=== PATIENT | male | born 1970 | race African-American/Black ===

== ENCOUNTER 2024-09-22 01:12 | Inpatient (IN) | payer SELFPAY ==
[~2024-09-22] VITALS: Ht 175.3 cm; Wt 79.4 kg
[2024-09-22 01:17] VITALS: TEMP 98.2
[2024-09-22] MEDS ORDERED: iohexol 350MG/ML 100ml bottle IV ONE (02:06)
[2024-09-22] MEDS: methylPREDNISolone sod succ 125mg/2ml vial IV ONE (02:10)
[2024-09-22] MEDS: LORazepam 2 mg/ml vial IV ONE (02:10)
[2024-09-22] MEDS: diphenhydrAMINE 50 mg/ml inj IV ONE (02:10)
[2024-09-22 02:19] LABS: BASOPHILS % (AUTO) 0.5 % (0-1); EOSINOPHILS # (AUTO) 0.1 X10'3 (0-0.9); EOSINOPHILS % (AUTO) 1.3 % (0-6); HEMATOCRIT 38.6 % (42.0-52.0); HEMOGLOBIN 13.1 g/dl (14.0-17.9); LYMPHOCYTES % (AUTO) 35.6 % (21-51); MEAN CORPUSCULAR HEMOGLOBIN 30.9 PG (27.0-31.0); MEAN CORPUSCULAR HGB CONC 33.9 g/dL (33.0-36.5); MEAN CORPUSCULAR VOLUME 91.2 FL (78-98); MEAN PLATELET VOLUME 9.6 FL (7.4-10.4); MONOCYTES # (AUTO) 0.5 X10'3 (0-0.9); MONOCYTES % (AUTO) 8.9 % (2-12); NEUTROPHILS % (AUTO) 53.7 % (42-75); PLATELET COUNT 286 X10'3 (140-440); RED BLOOD COUNT 4.24 X10'6 (4.70-6.10); RED CELL DISTRIBUTION WIDTH 14.1 % (11.5-14.5); WHITE BLOOD COUNT 5.6 X10'3 (4.5-11.0)
[2024-09-22 03:03] LABS: ALBUMIN 3.7 G/DL (3.4-5.0); ANION GAP 9 (8-16); BLOOD UREA NITROGEN 22 MG/DL (7-18); BUN/CREATININE RATIO 19.5 (10.0-20.0); CALCIUM 8.7 MG/DL (8.5-10.1); CHLORIDE 105 MMOL/L (99-107); CREATININE 1.13 MG/DL (0.60-1.10); GLUCOSE 112 MG/DL (70-104); POTASSIUM 3.6 MMOL/L (3.5-5.1); SODIUM 142 MMOL/L (135-145); TOTAL CARBON DIOXIDE 28.5 MMOL/L (24-32); eCRCL 75 ML/MIN; eGFR 82 ML/MIN
[2024-09-22] MEDS: enalaprilat 1.25mg/ml 2ml vial IV ONE (03:11)
[2024-09-22] MEDS ORDERED: magnesium Cl slow-release 64mg tablet PO PRN (05:50)
[2024-09-22] MEDS ORDERED: mag hydrox/Alum hydrox/simeth 30ml oral suspension PO PRN (05:50)
[2024-09-22] MEDS ORDERED: potassium Cl 20 mEq SR tablet PO PRN ×2 (05:50)
[2024-09-22] MEDS ORDERED: ondansetron/PF 4mg/2ml inj IV PRN (05:50)
[2024-09-22] MEDS ORDERED: magnesium sulf-water 2g/50mL 50 ML IV PRN (05:50)
[2024-09-22] MEDS ORDERED: magnesium hydroxide 30ml (MOM) UD suspension PO PRN (05:50)
[2024-09-22] MEDS ORDERED: potassium Cl 40MEQ/1/2NS 520ml 520 ML IV PRN (05:50)
[2024-09-22] MEDS ORDERED: acetaminophen 325mg tablet PO PRN (05:50)
[2024-09-22] MEDS ORDERED: magnesium sulf-water 4G/100mL 100 ML IV PRN (05:50)
[2024-09-22 06:33] VITALS: BP 147/70; PULSE 60; RESP 19; O2SAT 98
[2024-09-22] MEDS: K and/or MAG REPLACEMENT MC SCH (08:00)
[2024-09-22] MEDS: aspirin 81mg, enteric-coated 1 TAB TABLET.DR PO SCH (08:00)
[2024-09-22 08:59] LABS: MAGNESIUM 1.8 MG/DL (1.5-2.4); POTASSIUM 4.3 MMOL/L (3.5-5.1); PRO BRAIN NATRIURETIC PEPTIDE 47 PG/ML (0-125); SODIUM 136 MMOL/L (135-145); THYROID STIMULATING HORMONE 0.94 ulU/ml (0.34-4.50)
[2024-09-22 09:01] LABS: ETHANOL < 10 MG/DL (<10)
[2024-09-22] MEDS: atorvastatin 20mg tablet PO SCH (09:05)
[2024-09-22] MEDS: aspirin 81mg tab.chew PO ONE (09:05)
[2024-09-22] MEDS: docusate sod 100mg capsule PO SCH (09:05)
[2024-09-22] MEDS: apixaban 5mg tablet PO SCH (09:05)
[2024-09-22] MEDS: heparin, porcine 5000 units/ml vial SQ SCH (09:06)
[2024-09-22 09:17] LABS: OSMOLALITY 301 MOSM/K (280-300)
[2024-09-22 09:26] LABS: APTT 29 SECONDS (22-32); PROTHROMBIN TIME 10.9 SECONDS (9.0-12.0)
[2024-09-22] MEDS ORDERED: normal saline 500ml IV soln 500 ML IV ONE (10:10)
[2024-09-22] MEDS ORDERED: LORazepam 2 mg/ml vial IV PRN (10:10)
== END 2024-09-22 10:50 | disposition left against medical advice (07) | DRG 65 ==
LOC: ER 01:13 → ED HOLD 06:02
PROVIDERS: ADMIT Internal Medicine Pulmonary Disease; ATTEND Family Medicine
PROC: B3281ZZ Computerized Tomography (CT Scan) of Bilateral Internal Carotid Arteries using Low Osmolar Contrast (ICD-10-PCS; principal; 2024-09-22)
PROC: B32G1ZZ Computerized Tomography (CT Scan) of Bilateral Vertebral Arteries using Low Osmolar Contrast (ICD-10-PCS; 2024-09-22)
DX: I63.9 Cerebral infarction, unspecified (principal); I16.1 Hypertensive emergency; N17.9 Acute kidney failure, unspecified; I69.954 Hemiplegia and hemiparesis following unspecified cerebrovascular disease affecting left non-dominant side; I10 Essential (primary) hypertension; I48.91 Unspecified atrial fibrillation; Z53.29 Procedure and treatment not carried out because of patient's decision for other reasons
CPT/HCPCS: 36415; 70450; 70496; 70498; 71045; 80048; 80320; 82948; 83036; 83735; 83880; 83930; 84132; 84295; 84443; 85025; 85610; 85730; 92508; 92616; 93005; 99291; G0378; J1200; J1644; J2060; J2919; J3490; Q9967